=== PATIENT | male | born 1985 | race Caucasian/White ===

== ENCOUNTER 2019-10-31 12:30 | Emergency (ER) | payer MEDICAID ==
[~2019-10-31] VITALS: Ht 175.3 cm; Wt 92.5 kg
== END 2019-10-31 15:03 | disposition home or self-care (01) ==
LOC: ED 14:35
DX: G62.9 Polyneuropathy, unspecified (principal); J00 Acute nasopharyngitis [common cold]
CPT/HCPCS: 82962; 99282